=== PATIENT | female | born 1980 | race Caucasian/White ===

== ENCOUNTER 2017-09-06 19:27 | Emergency (ER) | payer MEDICAID ==
[2017-09-06 19:47] VITALS: BP 103/60; PULSE 74; RESP 14; TEMP 98.3; O2SAT 98
--- NOTE | 2017-09-06 20:31 | C.PDOC ---
History Of Present Illness 36 yo female come in for evaluation of Right eye injury sustained early today. Pt reports, " touch my eye with paper early today". Pt sts, gradually developed some discomfort "with blinking". Otherwise, pt denies blurry vision or pain on eye movement, denies eye discharges, floaters, eyelids pain or swelling, denies contact use, headache, dizziness, or any other active complaints. Ambulate to ED for evaluation, not in any apparent distress. Time Seen by Provider: 09/06/17 19:54 Chief Complaint (Nursing): Eye Problem History Per: Patient Past Medical History Reviewed: Historical Data, Nursing Documentation, Vital Signs Vital Signs: Last Vital Signs Temp 98.3 F 09/06/17 19:43 Pulse 74 09/06/17 19:43 Resp 14 09/06/17 19:43 BP 103/60 09/06/17 19:43 Pulse Ox 98 09/06/17 19:43 - Medical History PMH: No Chronic Diseases Family History: States: No Known Family Hx - Social History Hx Alcohol Use: No Hx Substance Use: No - Immunization History Hx Tetanus Toxoid Vaccination: No Hx Pneumococcal Vaccination: No Review Of Systems Except As Marked, All Systems Reviewed And Found Negative. Constitutional: Negative for: Fever, Chills Eyes: Positive for: Conjunctivae Inflammation. Negative for: Vision Change, Eyelid Inflammation ENT: Negative for: Ear Discharge, Nose Discharge, Nose Congestion, Throat Pain Neurological: Negative for: Weakness, Numbness, Altered Mental Status, Headache , Dizziness Physical Exam - Physical Exam Appears: Well, Non-toxic, No Acute Distress Skin: Normal Color, Warm, Dry, No Rash Head: Normacephalic Eye(s): bilateral: PERRL, EOMI (no pain or limitationon extraocular movement), right: Other (tiny fluoresceine uptake at 12 oclock. No corneal FB. NO periorbital edema or erythema.) Ear(s): Bilateral: Normal Nose: No Discharge Oral Mucosa: Moist, No Drooling Throat: No Drooling Neck: Normal Extremity: Normal ROM, No Pedal Edema, No Deformity, No Swelling Neurological/Psych: Oriented x3, Normal Speech ED Course And Treatment O2 Sat by Pulse Oximetry: 98 Pulse Ox Interpretation: Normal Progress Note: On re-evaluation, pt is afebrile, hemodynamicaly stable. Non- toxic. Head: AT/NC. RIGHT EYE: tiny corneal abrasion noted at 12 oclock. NO eyelids inflammation. No epriorbital edmea or erythema. No pain or limitation on extraocular movement. VA: R 20/30, L20/25 w/o correction ( performed by me) . neck: Supple, (-) midline tenderness. Neurologicaly intact. Eye patch applied. Pt advised. ref. to f/u with Opht in 2-3 days for re-eval. return to ED if any worsening or new changes. Disposition Counseled Patient/Family Regarding: Diagnosis, Need For Followup, Rx Given - Disposition Referrals: Pelon Mccormack [Staff Provider] - Disposition Time: 20:30 Condition: STABLE Additional Instructions: EYE PATCH FOR 1 WEEK USE EYE DROPS PRESCRIBED FOLLOW UP WITH OPHTHALMOLOGY IN 1-2 DAYS FOR RE-EVALUATION. RETURN TO ED IF ANY WORSENING OR NEW CHANGES. Prescriptions: Neomycin/Polymyxin/Dexamethaso [Dexamethasone/Neomycin/Polymyxin 5 Ml] 1 drop RIGHTEYE BID #1 bottle Instructions: Corneal Abrasion - Clinical Impression Clinical Impression: Corneal abrasion
== END 2017-09-06 20:47 | disposition home or self-care (01) ==
LOC: C.ER 19:27
DX: S05.01XA Injury of conjunctiva and corneal abrasion without foreign body, right eye, initial encounter (principal); X58.XXXA Exposure to other specified factors, initial encounter